=== PATIENT | female | born 1970 | race Caucasian/White ===

== ENCOUNTER 2017-02-28 08:09 | Outpatient (CLI) | payer OTHER | END 2017-02-28 19:21 | disposition home or self-care (01) | LOC: SMA 08:09 | PROVIDERS: ATTEND Family Medicine | DX: Z12.31 Encounter for screening mammogram for malignant neoplasm of breast (principal) | CPT/HCPCS: 77067; G0202 ==

== ENCOUNTER 2019-05-29 09:36 | Outpatient (CLI) | payer OTHER | END 2019-05-29 20:22 | disposition home or self-care (01) | LOC: SMA 09:36 | DX: Z12.31 Encounter for screening mammogram for malignant neoplasm of breast (principal) | CPT/HCPCS: 77067 ==

== ENCOUNTER 2020-12-01 08:55 | Outpatient (CLI) | payer OTHER | END 2020-12-01 20:46 | disposition home or self-care (01) | LOC: SMA 08:55 | DX: Z12.31 Encounter for screening mammogram for malignant neoplasm of breast (principal) | CPT/HCPCS: 77067 ==

== ENCOUNTER 2022-03-03 14:26 | Outpatient (CLI) | payer OTHER | END 2022-03-03 19:45 | disposition home or self-care (01) | LOC: SMA 14:26 | PROVIDERS: ATTEND Obstetrics & Gynecology | DX: Z12.31 Encounter for screening mammogram for malignant neoplasm of breast (principal) | CPT/HCPCS: 77067 ==

== ENCOUNTER 2023-09-22 13:56 | Outpatient (CLI) | payer BC | END 2023-09-22 18:28 | disposition home or self-care (01) | LOC: SMA 13:56 | PROVIDERS: ATTEND Obstetrics & Gynecology | DX: Z12.31 Encounter for screening mammogram for malignant neoplasm of breast (principal) | CPT/HCPCS: 77067 ==